=== PATIENT | male | born 1935 | race Caucasian/White ===

== ENCOUNTER 2018-04-27 23:05 | Inpatient (IN) | payer MEDICARE, MEDICAID ==
--- NOTE | 2018-04-27 23:42 | C.PDOC ---
History Of Present Illness 82 year old male with a Hx of HTN and dementia brought in by family after having a syncopal episode [employer]. As per family, patient went to use the bathroom, while in the bathroom they heard a loud noise and then found him on the floor. Patient states he was eating soup today and began to feel dizzy. Family notes patient often gets dizzy and has syncopized before in the past but always refused to come to hospital. Patient denies any pain, dizziness, or discomfort at this time. Chief Complaint (Nursing): Syncope History Per: Patient, Family History/Exam Limitations: no limitations Onset/Duration Of Symptoms: Hrs Current Symptoms Are (Timing): Still Present Number Of Syncopal Episodes: 1 Activity At Onset Of Symptoms: Other (Going to bathroom) Associated Symptoms Preceding Syncopal Episode: Other (Dizziness) Seizure Or Post-ictal Symptoms: None Fall Associated With With Symptoms: Yes Recent travel outside of the [place]: No Past Medical History Reviewed: Historical Data, Nursing Documentation, Vital Signs Vital Signs: Last Vital Signs Temp 98 F 04/27/18 23:14 Pulse 79 04/27/18 23:14 Resp 13 04/27/18 23:14 BP 140/84 04/27/18 23:14 Pulse Ox 100 04/27/18 23:14 - Medical History PMH: HTN Denies: Chronic Kidney Disease Family History: States: Unknown Family Hx - Social History Hx Tobacco Use: No Hx Alcohol Use: Yes Hx Substance Use: No - Immunization History Hx Tetanus Toxoid Vaccination: No Hx Influenza Vaccination: No Hx Pneumococcal Vaccination: No Review Of Systems Except As Marked, All Systems Reviewed And Found Negative. Neurological: Positive for: Other (Syncope) Physical Exam - Physical Exam Appears: Non-toxic Skin: Normal Color, Warm, Dry Head: Atraumatic, Normacephalic Eye(s): bilateral: Normal Inspection, PERRL, EOMI Nose: Normal Oral Mucosa: Moist Neck: Normal, No Midline Cervical Tenderness, No Paracervical Tenderness, Supple Chest: Symmetrical, No Tenderness Cardiovascular: Rhythm Regular Respiratory: Normal Breath Sounds, No Rales, No Rhonchi, No Wheezing Gastrointestinal/Abdominal: Soft, No Tenderness Back: No Vertebral Tenderness, No Paraspinal Tenderness Extremity: Normal ROM (x4) Neurological/Psych: Oriented x3, Normal Speech, Normal Motor, Normal Sensation, No Dysarthria Extremity: Right: No Drift, Left: No Drift, Upper: No Drift, Lower: No Drift ED Course And Treatment - Laboratory Results Result Diagrams: 04/28/18 06:34 04/28/18 06:34 ECG: Interpreted By Me, Viewed By Me ECG Rhythm: Sinus Rhythm ECG Interpretation: Normal Interpretation Of ECG: No STEMI Rate From EC O2 Sat by Pulse Oximetry: 100 (Room air) Pulse Ox Interpretation: Normal Medical Decision Making Medical Decision Makin yr old male w/ hx of dizziness, htn, dementia p/w syncopal event. Head trauma w/ out being on blood thinners. EKG largely unremarkable. Will likely require obs given syncopal episode and fall. Neck is clear by nexus labs largely unremarkable. CTH unremarkable. accepted by Dr. velasquez for syncope w/u. Pt in NAD and agreeable to plan. Disposition - Disposition Disposition Time: 01:02 Condition: GOOD - Clinical Impression Clinical Impression: Syncope - Scribe Statement The provider has reviewed the documentation as recorded by the Scribraeann Monique All medical record entries made by the Scribe were at my direction and personally dictated by me. I have reviewed the chart and agree that the record accurately reflects my personal performance of the history, physical exam, medical decision making, and the department course for this patient. I have also personally directed, reviewed, and agree with the discharge instructions and disposition.
[2018-04-28 00:26] LABS: BASO # 0.1 K/uL (0.0-0.2); EOS # 0.3 K/uL (0.0-0.7); EOS % 4.1 % (0.0-4.0); HEMOGLOBIN 12.3 g/dL (12.0-18.0); LYMPH # 2.6 K/uL (1.0-4.3); LYMPH % 31.5 % (20.0-40.0); MEAN CELL VOLUME 95.7 fL (80.0-94.0); MEAN CORPUSCULAR HEMOGLOBIN 31.7 pg (27.0-31.0); MEAN CORPUSCULAR HGB CONC 33.1 g/dL (33.0-37.0); MEAN PLATELET VOLUME 8.4 fL (7.2-11.7); MONO % 11.8 % (0.0-10.0); NEUT # 4.3 K/uL (1.8-7.0); NEUT % 51.6 % (50.0-75.0); NRBC % 0.1 % (0.0-2.0); RBC 3.89 Mil/uL (4.40-5.90); RED CELL DISTRIBUTION WIDTH 14.3 % (11.5-14.5); WHITE BLOOD COUNT 8.2 K/uL (4.8-10.8)
[2018-04-28 00:33] LABS: BLOOD UREA NITROGEN 13 mg/dL (9-20); CALCIUM 9.8 mg/dl (8.6-10.4); GFR NON-AFRICAN AMERICAN > 60
[2018-04-28 00:37] LABS: ALB/GLOB RATIO 1.6 (1.0-2.1); ALBUMIN 4.3 g/dL (3.5-5.0); ALT/SGPT 16 U/L (21-72); AST/SGOT 29 U/L (17-59)
[2018-04-28] MEDS: Sodium Chloride 0.9% 1,000 ML IV SCH ×2 (01:15→15:45)
[2018-04-28] MEDS ORDERED: MECLIZINE HYDROCHLORIDE PO PRN (06:08)
[2018-04-28 06:37] LABS: BASO # 0.1 K/uL (0.0-0.2); BASO % 0.9 % (0.0-2.0); EOS # 0.2 K/uL (0.0-0.7); EOS % 2.4 % (0.0-4.0); HEMOGLOBIN 11.6 g/dL (12.0-18.0); LYMPH # 3.4 K/uL (1.0-4.3); MEAN CELL VOLUME 94.5 fL (80.0-94.0); MEAN CORPUSCULAR HEMOGLOBIN 31.3 pg (27.0-31.0); MEAN CORPUSCULAR HGB CONC 33.2 g/dL (33.0-37.0); MEAN PLATELET VOLUME 7.7 fL (7.2-11.7); MONO # 0.8 K/uL (0.0-0.8); MONO % 8.8 % (0.0-10.0); NEUT # 5.1 K/uL (1.8-7.0); NEUT % 52.9 % (50.0-75.0); RBC 3.72 Mil/uL (4.40-5.90); RED CELL DISTRIBUTION WIDTH 14.2 % (11.5-14.5); WHITE BLOOD COUNT 9.6 K/uL (4.8-10.8)
[2018-04-28 06:52] LABS: ALB/GLOB RATIO 1.6 (1.0-2.1); ALBUMIN 3.7 g/dL (3.5-5.0); ALT/SGPT 20 U/L (21-72); AST/SGOT 19 U/L (17-59); BLOOD UREA NITROGEN 12 mg/dL (9-20); CALCIUM 9.3 mg/dl (8.6-10.4); GFR NON-AFRICAN AMERICAN > 60
--- NOTE | 2018-04-28 07:50 | CT ---
Date of service: 04/28/2018 PROCEDURE: CT HEAD WITHOUT CONTRAST. HISTORY: fall, syncope COMPARISON: 07/25/2013 TECHNIQUE: Axial computed tomography images were obtained through the head/brain without intravenous contrast. Radiation dose: Total exam DLP = 1044.08 mGy-cm. This CT exam was performed using one or more of the following dose reduction techniques: Automated exposure control, adjustment of the mA and/or kV according to patient size, and/or use of iterative reconstruction technique. FINDINGS: HEMORRHAGE: No intracranial hemorrhage. BRAIN: No mass effect or edema. Scattered focal lucencies in the subcortical and periventricular white matter suggestive for chronic microvascular ischemic change. Diffuse generalized parenchymal atrophy. Bifrontal extra-axial prominence. Cerebellar atrophy. VENTRICLES: Unremarkable. No hydrocephalus. CALVARIUM: Unremarkable. PARANASAL SINUSES: Unremarkable as visualized. No significant inflammatory changes. MASTOID AIR CELLS: Unremarkable as visualized. No inflammatory changes. OTHER FINDINGS: Intracranial arterial calcifications. Calcification along the falx and tentorium. IMPRESSION: No acute intracranial abnormality. Atrophy. Chronic microvascular ischemic change. If symptoms persists, consider correlation with MRI. A preliminary report was generated at 2:08 a.m. on 04/28/[address] Lion Preston from [facility].
--- NOTE | 2018-04-28 08:30 | RAD ---
Chest x-ray single frontal view HISTORY: Fall. Syncope. COMPARISON: None available. Findings: Mild venous congestion. Right paratracheal prominence may represent prominent vasculature. Heart size within normal limits. Degenerative changes in the spine and shoulders. Impression: Mild venous congestion. Right paratracheal prominence may represent prominent vasculature. Heart size within normal limits. Degenerative changes in the spine and shoulders.
[2018-04-28] MEDS ORDERED: Home Med 1 UNIT (Dexlansoprazole [Dexilant] 60 MG) PO SCH (10:00)
--- NOTE | 2018-04-28 10:33 | CP.PCM.CON ---
History of Present Illness - History of Present Illness History of Present Illness: I was asked to see patient by Dr Smallwood Patient was seen 04/28/18 0588 Patient is a 82 year old male with HTN who presents with syncope. Patient was walking from the bathroom when the family next heard a fall. He denies chest pain or palpitations. According to his daughter he has had multiple falls and syncopal events. Review of Systems - Constitutional Constitutional: absent: As Per HPI, Anorexia, Chills, Daytime Sleepiness, Excessive Sweating, Fatigue, Fever, Frequent Falls, Headache, Increased Appetite, Lethargy, Malaise, Night Sweats, Snoring, Sleep Apnea, Weight Gain, Weight Loss, Weakness, Other - EENT Eyes: absent: As Per HPI, Blind Spots, Blurred Vision, Change in Vision, Decreased Night Vision, Diplopia, Discharge, Dry Eye, Exophthalmos, Floaters, Irritation, Itchy Eyes, Loss of Peripheral Vision, Pain, Photophobia, Requires Corrective Lenses, Sees Flashes, Spots in Vision, Tunnel Vision, Other Visual Disturbances, Loss of Vision, Other Ears: absent: As Per HPI, Decreased Hearing, Ear Discharge, Ear Pain, Tinnitus, Abnormal Hearing, Disequilibrium, Dizziness, Other Nose/Mouth/Throat: absent: As Per HPI, Epistaxis, Nasal Congestion, Nasal Discharge, Nasal Obstruction, Nasal Trauma, Nose Pain, Post Nasal Drip, Sinus Pain, Sinus Pressure, Bleeding Gums, Change in Voice, Dental Pain, Dry Mouth, Dysphagia, Halitosis, Hoarsness, Lip Swelling, Mouth Lesions, Mouth Pain, Odynophagia, Sore Throat, Throat Swelling, Tongue Swelling, Facial Pain, Neck Pain, Neck Mass, Other - Cardiovascular Cardiovascular: Syncope - Respiratory Respiratory: absent: As Per HPI, Cough, Dyspnea, Hemoptysis, Dyspnea on Exertion, Wheezing, Snoring, Stridor, Pain on Inspiration, Chest Congestion, Excessive Mucous Production, Change in Mucous Color, Pain with Coughing, Other - Gastrointestinal Gastrointestinal: absent: As Per HPI, Abdominal Pain, Belching, Bloating, Change in Bowel Habits, Change in Stool Character, Coffee Ground Emesis, Constipation, Cramping, Diarrhea, Dyspepsia, Dysphagia, Early Satiety, Excessive Flatus, Fecal Incontinence, Heartburn, Hematemesis, Hematochezia, Loose Stools, Melena, Nausea, Odynophagia, Temesmus, Vomiting, Other - Genitourinary Genitourinary: absent: As Per HPI, Change in Urinary Stream, Difficulty Urinating, Dysuria, Flank Pain, Hematuria, Pyuria, Nocturia, Urinary Inc ontinence, Urinary Frequency, Urinary Hesitance, Urinary Urgency, Voiding Freq/Small Amts, Freq UTI, Hx Renal/Bladder Calculi, Hx /Renal Surgery, Bladder Distension, Other - Musculoskeletal Musculoskeletal: absent: As Per HPI, Abnormal Gait, Arthralgias, Atrophy, Back Pain, Deformity, Joint Swelling, Limited Range of Motion, Loss of Height, Muscle Cramps, Muscle Weakness, Myalgias, Neck Pain, Numbness, Radiating Pain into Limb, Stiffness, Tingling, Other - Integumentary Integumentary: absent: As Per HPI, Acne, Alopecia, Bleeding Lesions, Change in Hair, Change in Nails, Change in Pigmentation, Changing Lesions, Dry Skin, Erythema, Furuncle, Hirsutism, Lesions, New Lesions, Non-Healing Lesions, Photosensitivity, Pruritus, Rash, Skin Pain, Skin Ulcer, Sores, Striae, Swelling, Unusual Bruising, Wounds, Jaundice, Other - Neurological Neurological: absent: As Per HPI, Abnormal Gait, Abnormal Hearing, Abnormal Movements, Abnormal Speech, Behavioral Changes, Burning Sensations, Confusion, Convulsions, Disequilibrium, Dizziness, Numbness, Focal Weakness, Frequent Falls, Headaches, Lack of Coordination, Loss of Vision, Memory Loss, Paresthesias, Radicular Pain, Restless Legs, Sensory Deficit, Syncope, Tingling, Tremor, Vertigo, Weakness, Other Visual Disturbances, Other - Psychiatric Psychiatric: absent: As Per HPI, Abnormal Sleep Pattern, Anhedonia, Anxiety, Auditory Hallucinations, Behavioral Changes, Change in Appetite, Change in Libido, Confusion, Depression, Difficulty Concentrating, Hallucinations, Homicidal Ideation, Hopelessness, Irritability, Memory Loss, Mood Swings, Panic Attacks, Paranoia, Suicidal Ideation, Visual Hallucinations, Tactile Hallucinations, Other - Endocrine Endocrine: absent: As Per HPI, Change in Body Appearance, Change in Libido, Cold Intolorance, Deepening of Voice, Excessive Sweating, Fatigue, Flushing, Heat Intolorance, Increase in Ring/Shoe/Hat Size, Palpitations, Polydipsia, Polyphagia, Polyuria, Other - Hematologic/Lymphatic Hematologic: absent: As Per HPI, Easy Bleeding, Easy Bruising, Lymphadenopathy, Other Past Patient History - Past Social History Smoking Status: Never Smoked - CARDIAC Hx Hypertension: Yes - PULMONARY Hx Respiratory Disorders: No - NEUROLOGICAL Hx Neurological Disorder: Yes Hx Dizziness: Yes - HEENT Hx HEENT Problems: No - RENAL Hx Chronic Kidney Disease: No - ENDOCRINE/METABOLIC Hx Endocrine Disorders: No - HEMATOLOGICAL/ONCOLOGICAL Hx Blood Disorders: No - INTEGUMENTARY Hx Dermatological Problems: No - MUSCULOSKELETAL/RHEUMATOLOGICAL Hx Musculoskeletal Disorders: No - GASTROINTESTINAL Hx Gastrointestinal Disorders: Yes Hx Gastroesophageal Reflux: Yes - GENITOURINARY/GYNECOLOGICAL Hx Genitourinary Disorders: No - PSYCHIATRIC Hx Substance Use: No - SURGICAL HISTORY Hx Surgeries: No - ANESTHESIA Hx Anesthesia: No Meds Allergies/Adverse Reactions: Allergies Allergy/AdvReac Type Severity Reaction Status Date / Time No Known Allergies Allergy Verified 04/27/18 23:18 - Medications Medications: Current Medications Amlodipine Besylate (Norvasc) 5 mg PO DAILY [facility] Last Admin: 04/28/18 09:54 Dose: 5 mg Enalapril Maleate (Vasotec) 5 mg PO DAILY [facility] Last Admin: 04/28/18 09:54 Dose: 5 mg Sodium Chloride (Sodium Chloride 0.9%) 1,000 mls @ 75 mls/hr IV .[id number] [facility] Last Admin: 04/28/18 01:15 Dose: 75 mls/hr Meclizine HCl (Antivert) 25 mg PO BID PRN PRN Reason: Dizziness Pantoprazole Sodium (Protonix Ec Tab) 40 mg PO DAILY [facility] Physical Exam - Constitutional Appears: Non-toxic - Head Exam Head Exam: NORMAL INSPECTION - Eye Exam Eye Exam: Normal appearance - ENT Exam ENT Exam: Mucous Membranes Moist - Neck Exam Neck exam: Positive for: Full Rom - Respiratory Exam Respiratory Exam: NORMAL BREATHING PATTERN - Cardiovascular Exam Cardiovascular Exam: REGULAR RHYTHM, RRR, Systolic Murmur Additional comments: 3/6 crescendo systolic murmur LUSB to the carotids. diminshed second heart sound - GI/Abdominal Exam GI & Abdominal Exam: Normal Bowel Sounds - Rectal Exam Rectal Exam: Deferred - Extremities Exam Extremities exam: Negative for: pedal edema - Back Exam Back exam: NORMAL INSPECTION - Neurological Exam Neurological exam: Alert, Oriented x3 - Psychiatric Exam Psychiatric exam: Normal Affect - Skin Skin Exam: Normal Color Results - Vital Signs Recent Vital Signs: Last Vital Signs Temp 97.5 F L 04/28/18 02:29 Pulse 87 04/28/18 09:47 Resp 18 04/28/18 09:47 BP 124/64 04/28/18 09:54 Pulse Ox 99 04/28/18 09:47 - Labs Result Diagrams: 04/28/18 06:34 04/28/18 06:34 Labs: Laboratory Results - last 24 hr 04/27/18 04/28/18 04/28/18 23:29 00:16 00:16 WBC 8.2 RBC 3.89 L Hgb 12.3 Hct 37.2 MCV 95.7 H MCH 31.7 H MCHC 33.1 RDW 14.3 Plt Count 265 MPV 8.4 Neut % (Auto) 51.6 Lymph % (Auto) 31.5 [place] % (Auto) 11.8 H Eos % (Auto) 4.1 H Baso % (Auto) 1.0 Neut # (Auto) 4.3 Lymph # (Auto) 2.6 [place] # (Auto) 1.0 H Eos # (Auto) 0.3 Baso # (Auto) 0.1 Sodium 137 Potassium 5.5 H Chloride 100 Carbon Dioxide 26 Anion Gap 16 BUN 13 Creatinine 0.7 L Est GFR ( Amer) > 60 Est GFR (Non-Af Amer) > 60 POC Glucose (mg/dL) 115 H Random Glucose 103 Calcium 9.8 Total Bilirubin 0.7 AST 29 ALT 16 L D Alkaline Phosphatase 56 Troponin I < 0.0120 Total Protein 7.1 Albumin 4.3 Globulin 2.8 Albumin/Globulin Ratio 1.6 TSH 3rd Generation 4.06 04/28/18 04/28/18 06:34 06:34 WBC 9.6 RBC 3.72 L Hgb 11.6 L Hct 35.1 MCV 94.5 H MCH 31.3 H MCHC 33.2 RDW 14.2 Plt Count 257 MPV 7.7 Neut % (Auto) 52.9 Lymph % (Auto) 35.0 [place] % (Auto) 8.8 Eos % (Auto) 2.4 Baso % (Auto) 0.9 Neut # (Auto) 5.1 Lymph # (Auto) 3.4 [place] # (Auto) 0.8 Eos # (Auto) 0.2 Baso # (Auto) 0.1 Sodium 135 Potassium 4.2 Chloride 102 Carbon Dioxide 25 Anion Gap 12 BUN 12 Creatinine 0.7 L Est GFR ( Amer) > 60 Est GFR (Non-Af Amer) > 60 POC Glucose (mg/dL) Random Glucose 112 H Calcium 9.3 Total Bilirubin 0.4 AST 19 ALT 20 L D Alkaline Phosphatase 62 Troponin I Total Protein 6.1 L Albumin 3.7 Globulin 2.4 Albumin/Globulin Ratio 1.6 TSH 3rd Generation - EKG Data EKG Interpreted by: Myself EKG shows normal: Sinus rhythm Assessment & Plan (1) Aortic stenosis Assessment and Plan: The physical exam is consistent with aortic stenosis. This is likely the cause of the patient's symptoms. will check echocardiogram Status: Acute (2) Syncope Assessment and Plan: likely due to aortic stenosis Status: Acute
--- NOTE | 2018-04-28 14:48 | CP.PCM.CON ---
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 EEG/MRI/BLOOD WORK UP /CAROTID FALL PERECAUTION PT Past Patient History - Past Social History Smoking Status: Never Smoked - CARDIAC Hx Hypertension: Yes - PULMONARY Hx Respiratory Disorders: No - NEUROLOGICAL Hx Neurological Disorder: Yes Hx Dizziness: Yes - HEENT Hx HEENT Problems: No - RENAL Hx Chronic Kidney Disease: No - ENDOCRINE/METABOLIC Hx Endocrine Disorders: No - HEMATOLOGICAL/ONCOLOGICAL Hx Blood Disorders: No - INTEGUMENTARY Hx Dermatological Problems: No - MUSCULOSKELETAL/RHEUMATOLOGICAL Hx Musculoskeletal Disorders: No - GASTROINTESTINAL Hx Gastrointestinal Disorders: Yes Hx Gastroesophageal Reflux: Yes - GENITOURINARY/GYNECOLOGICAL Hx Genitourinary Disorders: No - PSYCHIATRIC Hx Substance Use: No - SURGICAL HISTORY Hx Surgeries: No - ANESTHESIA Hx Anesthesia: No Meds Allergies/Adverse Reactions: Allergies Allergy/AdvReac Type Severity Reaction Status Date / Time No Known Allergies Allergy Verified 04/27/18 23:18 - Medications Medications: Current Medications Amlodipine Besylate (Norvasc) 5 mg PO DAILY [facility] Last Admin: 04/28/18 09:54 Dose: 5 mg Enalapril Maleate (Vasotec) 5 mg PO DAILY [facility] Last Admin: 04/28/18 09:54 Dose: 5 mg Sodium Chloride (Sodium Chloride 0.9%) 1,000 mls @ 75 mls/hr IV .[id number] [facility] Last Admin: 04/28/18 01:15 Dose: 75 mls/hr Meclizine HCl (Antivert) 25 mg PO BID PRN PRN Reason: Dizziness Pantoprazole Sodium (Protonix Ec Tab) 40 mg PO DAILY [facility] Results - Vital Signs Recent Vital Signs: Last Vital Signs Temp 97.5 F L 04/28/18 02:29 Pulse 84 04/28/18 11:38 Resp 22 04/28/18 11:38 BP 116/72 04/28/18 11:38 Pulse Ox 99 04/28/18 11:38 - Labs Result Diagrams: 04/28/18 06:34 04/28/18 06:34 Labs: Laboratory Results - last 24 hr 04/27/18 04/28/18 04/28/18 23:29 00:16 00:16 WBC 8.2 RBC 3.89 L Hgb 12.3 Hct 37.2 MCV 95.7 H MCH 31.7 H MCHC 33.1 RDW 14.3 Plt Count 265 MPV 8.4 Neut % (Auto) 51.6 Lymph % (Auto) 31.5 [place] % (Auto) 11.8 H Eos % (Auto) 4.1 H Baso % (Auto) 1.0 Neut # (Auto) 4.3 Lymph # (Auto) 2.6 [place] # (Auto) 1.0 H Eos # (Auto) 0.3 Baso # (Auto) 0.1 Sodium 137 Potassium 5.5 H Chloride 100 Carbon Dioxide 26 Anion Gap 16 BUN 13 Creatinine 0.7 L Est GFR ( Amer) > 60 Est GFR (Non-Af Amer) > 60 POC Glucose (mg/dL) 115 H Random Glucose 103 Calcium 9.8 Total Bilirubin 0.7 AST 29 ALT 16 L D Alkaline Phosphatase 56 Troponin I < 0.0120 Total Protein 7.1 Albumin 4.3 Globulin 2.8 Albumin/Globulin Ratio 1.6 TSH 3rd Generation 4.06 04/28/18 04/28/18 06:34 06:34 WBC 9.6 RBC 3.72 L Hgb 11.6 L Hct 35.1 MCV 94.5 H MCH 31.3 H MCHC 33.2 RDW 14.2 Plt Count 257 MPV 7.7 Neut % (Auto) 52.9 Lymph % (Auto) 35.0 [place] % (Auto) 8.8 Eos % (Auto) 2.4 Baso % (Auto) 0.9 Neut # (Auto) 5.1 Lymph # (Auto) 3.4 [place] # (Auto) 0.8 Eos # (Auto) 0.2 Baso # (Auto) 0.1 Sodium 135 Potassium 4.2 Chloride 102 Carbon Dioxide 25 Anion Gap 12 BUN 12 Creatinine 0.7 L Est GFR ( Amer) > 60 Est GFR (Non-Af Amer) > 60 POC Glucose (mg/dL) Random Glucose 112 H Calcium 9.3 Total Bilirubin 0.4 AST 19 ALT 20 L D Alkaline Phosphatase 62 Troponin I Total Protein 6.1 L Albumin 3.7 Globulin 2.4 Albumin/Globulin Ratio 1.6 TSH 3rd Generation
[2018-04-28 15:01] LABS: PROLACTIN 7.3 ng/mL (3.7-17.9)
[2018-04-28 15:04] LABS: FREE T4 0.95 ng/dL (0.78-2.19)
[2018-04-28] MEDS ORDERED: Sodium Chloride 0.9% 1,000 ML ONE (15:42)
--- NOTE | 2018-04-28 18:34 | CP.PCM.HP ---
History of Present Illness - History of Present Illness History of Present Illness: 82 years old male with PMH significant for HTN who presents to ER after he fell at home due to a Syncopal episode. Patient denies headache, chest pain, shortness of breath, dizziness, abdominal pain or urinary symptoms. Present on Admission - Present on Admission Any Indicators Present on Admission: No Review of Systems - Cardiovascular Cardiovascular: Syncope - Neurological Neurological: Confusion Past Patient History - Past Social History Smoking Status: Never Smoked - CARDIAC Hx Hypertension: Yes - PULMONARY Hx Respiratory Disorders: No - NEUROLOGICAL Hx Neurological Disorder: Yes Hx Dizziness: Yes - HEENT Hx HEENT Problems: No - RENAL Hx Chronic Kidney Disease: No - ENDOCRINE/METABOLIC Hx Endocrine Disorders: No - HEMATOLOGICAL/ONCOLOGICAL Hx Blood Disorders: No - INTEGUMENTARY Hx Dermatological Problems: No - MUSCULOSKELETAL/RHEUMATOLOGICAL Hx Musculoskeletal Disorders: No - GASTROINTESTINAL Hx Gastrointestinal Disorders: Yes Hx Gastroesophageal Reflux: Yes - GENITOURINARY/GYNECOLOGICAL Hx Genitourinary Disorders: No - PSYCHIATRIC Hx Substance Use: No - SURGICAL HISTORY Hx Surgeries: No - ANESTHESIA Hx Anesthesia: No Meds Allergies/Adverse Reactions: Allergies Allergy/AdvReac Type Severity Reaction Status Date / Time No Known Allergies Allergy Verified 04/27/18 23:18 Physical Exam - Constitutional Appears: Non-toxic, No Acute Distress, Confused - Head Exam Head Exam: ATRAUMATIC, NORMAL INSPECTION, NORMOCEPHALIC - Eye Exam Eye Exam: EOMI, Normal appearance, PERRL - ENT Exam ENT Exam: Mucous Membranes Moist, Normal Exam - Neck Exam Neck exam: Positive for: Normal Inspection - Respiratory Exam Respiratory Exam: Clear to Auscultation Bilateral, NORMAL BREATHING PATTERN - Cardiovascular Exam Cardiovascular Exam: REGULAR RHYTHM, +S1, +S2, Systolic Murmur - GI/Abdominal Exam GI & Abdominal Exam: Normal Bowel Sounds, Soft - Extremities Exam Extremities exam: Positive for: full ROM, normal inspection - Back Exam Back exam: NORMAL INSPECTION - Neurological Exam Neurological exam: Alert, CN II-XII Intact - Psychiatric Exam Psychiatric exam: Flat Affect, Normal Mood Results - Vital Signs Recent Vital Signs: Last Vital Signs Temp 99.2 F 04/28/18 18:05 Pulse 85 04/28/18 18:05 Resp 18 04/28/18 18:05 BP 117/57 L 04/28/18 18:05 Pulse Ox 99 04/28/18 18:05 - Labs Result Diagrams: 04/28/18 06:34 04/28/18 06:34 Labs: Laboratory Results - last 24 hr 04/27/18 04/28/18 04/28/18 23:29 00:16 00:16 WBC 8.2 RBC 3.89 L Hgb 12.3 Hct 37.2 MCV 95.7 H MCH 31.7 H MCHC 33.1 RDW 14.3 Plt Count 265 MPV 8.4 Neut % (Auto) 51.6 Lymph % (Auto) 31.5 [place] % (Auto) 11.8 H Eos % (Auto) 4.1 H Baso % (Auto) 1.0 Neut # (Auto) 4.3 Lymph # (Auto) 2.6 [place] # (Auto) 1.0 H Eos # (Auto) 0.3 Baso # (Auto) 0.1 Sodium 137 Potassium 5.5 H Chloride 100 Carbon Dioxide 26 Anion Gap 16 BUN 13 Creatinine 0.7 L Est GFR ( Amer) > 60 Est GFR (Non-Af Amer) > 60 POC Glucose (mg/dL) 115 H Random Glucose 103 Hemoglobin A1c Calcium 9.8 Total Bilirubin 0.7 AST 29 ALT 16 L D Alkaline Phosphatase 56 Troponin I < 0.0120 Total Protein 7.1 Albumin 4.3 Globulin 2.8 Albumin/Globulin Ratio 1.6 Vitamin B12 Free T4 TSH 3rd Generation 4.06 Prolactin 04/28/18 04/28/18 04/28/18 06:34 06:34 14:21 WBC 9.6 RBC 3.72 L Hgb 11.6 L Hct 35.1 MCV 94.5 H MCH 31.3 H MCHC 33.2 RDW 14.2 Plt Count 257 MPV 7.7 Neut % (Auto) 52.9 Lymph % (Auto) 35.0 [place] % (Auto) 8.8 Eos % (Auto) 2.4 Baso % (Auto) 0.9 Neut # (Auto) 5.1 Lymph # (Auto) 3.4 [place] # (Auto) 0.8 Eos # (Auto) 0.2 Baso # (Auto) 0.1 Sodium 135 Potassium 4.2 Chloride 102 Carbon Dioxide 25 Anion Gap 12 BUN 12 Creatinine 0.7 L Est GFR ( Amer) > 60 Est GFR (Non-Af Amer) > 60 POC Glucose (mg/dL) Random Glucose 112 H Hemoglobin A1c 5.8 Calcium 9.3 Total Bilirubin 0.4 AST 19 ALT 20 L D Alkaline Phosphatase 62 Troponin I Total Protein 6.1 L Albumin 3.7 Globulin 2.4 Albumin/Globulin Ratio 1.6 Vitamin B12 Free T4 TSH 3rd Generation Prolactin 04/28/18 04/28/18 14:21 14:21 WBC RBC Hgb Hct MCV MCH MCHC RDW Plt Count MPV Neut % (Auto) Lymph % (Auto) [place] % (Auto) Eos % (Auto) Baso % (Auto) Neut # (Auto) Lymph # (Auto) [place] # (Auto) Eos # (Auto) Baso # (Auto) Sodium Potassium Chloride Carbon Dioxide Anion Gap BUN Creatinine Est GFR ( Amer) Est GFR (Non-Af Amer) POC Glucose (mg/dL) Random Glucose Hemoglobin A1c Calcium Total Bilirubin AST ALT Alkaline Phosphatase Troponin I Total Protein Albumin Globulin Albumin/Globulin Ratio Vitamin B12 < 159 L Free T4 0.95 TSH 3rd Generation 1.08 Prolactin 7.3 Assessment & Plan (1) Syncope Assessment and Plan: Neurology evaluation. Cardiology evaluation. CBC Diff. CMP. UA. Status: Acute (2) Aortic stenosis Assessment and Plan: Cardiology evaluation. 2D Echo. Status: Acute (3) Hypertension Assessment and Plan: Continue same treatment. Status: Acute
[2018-04-28 19:18] LABS: BLOOD UREA NITROGEN 10 mg/dL (9-20); CALCIUM 9.1 mg/dl (8.6-10.4); GFR NON-AFRICAN AMERICAN > 60
[2018-04-29 01:30] VITALS: RESP 20
--- NOTE | 2018-04-29 02:13 | CON ---
DATE: 04/28/2018 DATE OF ADMISSION: 04/27/2018 ATTENDING PHYSICIAN: Judah Smallwood MD LOCATION: Emergency room, bed 15. REASON FOR CONSULTATION: Syncopal attack. CHIEF COMPLAINT: The patient was brought into [facility] following the fall in the bathroom. The patient had a syncopal attack in the bathroom. From neurological point of view, I was called in to evaluate him for further management. HISTORY OF PRESENT ILLNESS: Mr. Daniel Rizo is an 82-year-old male, lives with his . Around 10 o'clock, he went to the bathroom for urination. Next thing, the heard a big sound. At that time they got into the bathroom, he was on the floor with loss of consciousness. He fell face down and hurt his chin and head. No witnessed tonic-clonic activities at the scene. No bowel and bladder incontinence at the scene. No history of bitten tongue. No similar episodes happened in the past. PAST MEDICAL HISTORY: Hypertension. ALLERGIES: NO KNOWN ALLERGIES. PERSONAL HISTORY: He drinks three to four cans of beer every day. No history of smoking. REVIEW OF SYSTEMS: Twelve-point system being reviewed from neuro, syncopal attack. MEDICATIONS: Antivert, Norvasc, Protonix, IV fluids and Vasotec. PHYSICAL EXAMINATION: NECK: Supple. No carotid bruits. HEART: Heart sounds suggest ejection systolic murmur with a grade 3. EXTREMITIES: Left leg externally rotated. NEUROLOGIC EXAMINATION: The patient is examined in the presence of his , daughter, and granddaughter. He knows he is in the hospital. His speech is fluent as per the family; however, he seems to be dysarthric for me. He follows one to two-step command. Significant right and left confusion. Cranial nerve examination: Visual field intact. Respond to visual threat. Pupils reactive to light. Extraocular movement decreased in all direction. No facial sensory deficit, facial asymmetry, mild asymmetry noted on the left side. Good gag. Motor examination: Mild drift noted on his left side. Left leg also seems to be weak to compare with the right side. Deep tendon reflexes in biceps, brachialis, triceps are absent, both knees are absent, both ankles are absent. Plantars are upgoing on both sides. Sensory examination: Significant distal sensory motor neuropathy. Position sense is intact. Coordination: Fabjqe-[id number]-djjbla test dysmetria on the left side. Gait is deferred at this time. Examination showed raccoon eye with ecchymosis on his lower orbit on his left side and chin region. CONCLUSION: 1. As per my neurological examination and reviewing his history, the patient was presenting here with postconcussion syndrome with mild left hemiparesis. The patient was presenting with raccoon eye probably basilar skull fracture. 2. Left hemiparesis which may be new versus old right subcortical dysfunction. However, Nic's paresis should be ruled out. 3. 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 WORKUP: CT of the head reported as negative for bleed. Blood workup: WBC 9.6, hemoglobin 11.6, hematocrit 35.1, platelet 257. Sodium 135, potassium 4.2, chloride 102, bicarbonate 25, BUN 12, creatinine 0.7, GFR more than 60, random glucose 112. AST 19, ALT 20. RECOMMENDATIONS: 1. MRI of the brain to rule out any ischemic process. 2. Carotid Doppler to assess the stenosis. 3. Electroencephalogram to rule out any paroxysmal activities. 4. The patient should be on aspirin for stroke prophylaxis. 5. Abstinence from alcohol. 6. Physical therapy. The patient's condition has been discussed with the family members. The patient will be followed while he is in the hospital. Uzair Anguiano MD
[2018-04-29] MEDS: Pantoprazole 40 mg EC Tab PO SCH (10:31)
--- NOTE | 2018-04-29 10:51 | MRI ---
Date of service: 04/29/2018 PROCEDURE: MRI BRAIN WITHOUT CONTRAST HISTORY: r/o mass COMPARISON: None available. TECHNIQUE: Multiplanar, multisequence MR images of the brain were obtained without intravenous contrast enhancement. FINDINGS: HEMORRHAGE: None DWI: No evidence of an acute or early subacute infarction. BRAIN PARENCHYMA: The rees-white matter differentiation is well preserved. There is no mass effect or definitive edema pattern appreciated including the cortex. There is proportional expansion of the ventriculosulcal and cisternal spaces however in a pattern most compatible with diffuse cerebral atrophy, once again. No suspicious extra-axial fluid collection is identified in the midline brain anatomy appears grossly nonfocal as imaged. VENTRICLES: Unremarkable. No hydrocephalus. CRANIUM: Unremarkable. ORBITS: Grossly unremarkable. PARANASAL SINUSES/MASTOIDS: Clear VASCULAR SYSTEM: Skull base flow voids intact. OTHER FINDINGS: None. IMPRESSION: Age-related neuro degenerative changes remain age appropriate and are reiterated without definite acute intracranial MR findings as discussed above. Continued clinical correlation advised. Cross-sectional imaging follow-up available. No overt MR sign of intracranial mass however MRI with contrast can be utilized for more definitive evaluation.
[2018-04-29] MEDS: Sodium Chloride 0.9% 1,000 ML IV SCH (15:45)
--- NOTE | 2018-04-29 18:15 | CP.PCM.CON ---
History of Present Illness - History of Present Illness History of Present Illness: patient has no current chest pain or dyspnea. Review of Systems - Constitutional Constitutional: absent: As Per HPI, Anorexia, Chills, Daytime Sleepiness, Excessive Sweating, Fatigue, Fever, Frequent Falls, Headache, Increased Appetite, Lethargy, Malaise, Night Sweats, Snoring, Sleep Apnea, Weight Gain, Weight Loss, Weakness, Other - EENT Eyes: absent: As Per HPI, Blind Spots, Blurred Vision, Change in Vision, Decreased Night Vision, Diplopia, Discharge, Dry Eye, Exophthalmos, Floaters, Irritation, Itchy Eyes, Loss of Peripheral Vision, Pain, Photophobia, Requires Corrective Lenses, Sees Flashes, Spots in Vision, Tunnel Vision, Other Visual Disturbances, Loss of Vision, Other Ears: absent: As Per HPI, Decreased Hearing, Ear Discharge, Ear Pain, Tinnitus, Abnormal Hearing, Disequilibrium, Dizziness, Other Nose/Mouth/Throat: absent: As Per HPI, Epistaxis, Nasal Congestion, Nasal Discharge, Nasal Obstruction, Nasal Trauma, Nose Pain, Post Nasal Drip, Sinus Pain, Sinus Pressure, Bleeding Gums, Change in Voice, Dental Pain, Dry Mouth, Dysphagia, Halitosis, Hoarsness, Lip Swelling, Mouth Lesions, Mouth Pain, Odynophagia, Sore Throat, Throat Swelling, Tongue Swelling, Facial Pain, Neck Pain, Neck Mass, Other - Cardiovascular Cardiovascular: Dyspnea - Respiratory Respiratory: absent: As Per HPI, Cough, Dyspnea, Hemoptysis, Dyspnea on Exertion, Wheezing, Snoring, Stridor, Pain on Inspiration, Chest Congestion, Excessive Mucous Production, Change in Mucous Color, Pain with Coughing, Other - Gastrointestinal Gastrointestinal: absent: As Per HPI, Abdominal Pain, Belching, Bloating, Change in Bowel Habits, Change in Stool Character, Coffee Ground Emesis, Constipation, Cramping, Diarrhea, Dyspepsia, Dysphagia, Early Satiety, Excessive Flatus, Fecal Incontinence, Heartburn, Hematemesis, Hematochezia, Loose Stools, Melena, Nausea, Odynophagia, Temesmus, Vomiting, Other - Musculoskeletal Musculoskeletal: absent: As Per HPI, Abnormal Gait, Arthralgias, Atrophy, Back Pain, Deformity, Joint Swelling, Limited Range of Motion, Loss of Height, Muscle Cramps, Muscle Weakness, Myalgias, Neck Pain, Numbness, Radiating Pain into Limb, Stiffness, Tingling, Other - Integumentary Integumentary: absent: As Per HPI, Acne, Alopecia, Bleeding Lesions, Change in Hair, Change in Nails, Change in Pigmentation, Changing Lesions, Dry Skin, Erythema, Furuncle, Hirsutism, Lesions, New Lesions, Non-Healing Lesions, Photosensitivity, Pruritus, Rash, Skin Pain, Skin Ulcer, Sores, Striae, Swelling, Unusual Bruising, Wounds, Jaundice, Other - Neurological Neurological: absent: As Per HPI, Abnormal Gait, Abnormal Hearing, Abnormal Movements, Abnormal Speech, Behavioral Changes, Burning Sensations, Confusion, Convulsions, Disequilibrium, Dizziness, Numbness, Focal Weakness, Frequent Falls, Headaches, Lack of Coordination, Loss of Vision, Memory Loss, Paresthesias, Radicular Pain, Restless Legs, Sensory Deficit, Syncope, Tingling, Tremor, Vertigo, Weakness, Other Visual Disturbances, Other - Psychiatric Psychiatric: absent: As Per HPI, Abnormal Sleep Pattern, Anhedonia, Anxiety, Auditory Hallucinations, Behavioral Changes, Change in Appetite, Change in Libido, Confusion, Depression, Difficulty Concentrating, Hallucinations, Homicidal Ideation, Hopelessness, Irritability, Memory Loss, Mood Swings, Panic Attacks, Paranoia, Suicidal Ideation, Visual Hallucinations, Tactile Hallucinations, Other - Endocrine Endocrine: absent: As Per HPI, Change in Body Appearance, Change in Libido, Cold Intolorance, Deepening of Voice, Excessive Sweating, Fatigue, Flushing, Heat Intolorance, Increase in Ring/Shoe/Hat Size, Palpitations, Polydipsia, Polyphagia, Polyuria, Other - Hematologic/Lymphatic Hematologic: absent: As Per HPI, Easy Bleeding, Easy Bruising, Lymphadenopathy, Other Past Patient History - Past Social History Smoking Status: Never Smoked - CARDIAC Hx Hypertension: Yes - PULMONARY Hx Respiratory Disorders: No - NEUROLOGICAL Hx Neurological Disorder: Yes Hx Dizziness: Yes - HEENT Hx HEENT Problems: No - RENAL Hx Chronic Kidney Disease: No - ENDOCRINE/METABOLIC Hx Endocrine Disorders: No - HEMATOLOGICAL/ONCOLOGICAL Hx Blood Disorders: No - INTEGUMENTARY Hx Dermatological Problems: No - MUSCULOSKELETAL/RHEUMATOLOGICAL Hx Falls: Yes - GASTROINTESTINAL Hx Gastrointestinal Disorders: Yes Hx Gastroesophageal Reflux: Yes - GENITOURINARY/GYNECOLOGICAL Hx Genitourinary Disorders: No - PSYCHIATRIC Hx Substance Use: No - SURGICAL HISTORY Hx Surgeries: No - ANESTHESIA Hx Anesthesia: No Meds Allergies/Adverse Reactions: Allergies Allergy/AdvReac Type Severity Reaction Status Date / Time No Known Allergies Allergy Verified 04/27/18 23:18 - Medications Medications: Current Medications Amlodipine Besylate (Norvasc) 5 mg PO DAILY [facility] Last Admin: 04/29/18 10:31 Dose: 5 mg Aspirin (Ecotrin) 81 mg PO DAILY [facility] Last Admin: 04/29/18 10:31 Dose: 81 mg Cyanocobalamin (Vitamin B12 1000 Mcg/Ml Inj) 1,000 mcg IM DAILY [facility] Stop: 05/02/18 23:59 Last Admin: 04/29/18 10:43 Dose: 1,000 mcg Enalapril Maleate (Vasotec) 5 mg PO DAILY [facility] Last Admin: 04/29/18 10:31 Dose: 5 mg Enoxaparin Sodium (Lovenox) 40 mg SC DAILY [facility] Sodium Chloride (Sodium Chloride 0.9%) 1,000 mls @ 75 mls/hr IV .[id number] [facility] Last Admin: 04/28/18 15:45 Dose: 75 mls/hr Influenza Virus Vaccine (Flucelvax Quad 2888-5969 Syr) 60 mcg IM .ONCE ONE Stop: 04/30/18 10:01 Meclizine HCl (Antivert) 25 mg PO BID PRN PRN Reason: Dizziness Pantoprazole Sodium (Protonix Ec Tab) 40 mg PO DAILY [facility] Last Admin: 04/29/18 10:31 Dose: 40 mg Pneumococcal Polyvalent Vaccine (Pneumovax 23 Vaccine) 0.5 ml IM .ONCE ONE Stop: 04/30/18 10:01 Physical Exam - Constitutional Appears: Non-toxic - Head Exam Head Exam: NORMAL INSPECTION - Eye Exam Eye Exam: Normal appearance - ENT Exam ENT Exam: Mucous Membranes Moist - Neck Exam Neck exam: Positive for: Full Rom - Respiratory Exam Respiratory Exam: NORMAL BREATHING PATTERN - Cardiovascular Exam Cardiovascular Exam: REGULAR RHYTHM, Systolic Murmur - GI/Abdominal Exam GI & Abdominal Exam: Normal Bowel Sounds - Rectal Exam Rectal Exam: Deferred - Extremities Exam Extremities exam: Negative for: pedal edema - Back Exam Back exam: NORMAL INSPECTION - Neurological Exam Neurological exam: Alert, Oriented x3 - Psychiatric Exam Psychiatric exam: Normal Affect - Skin Skin Exam: Normal Color Results - Vital Signs Recent Vital Signs: Last Vital Signs Temp 97.7 F 04/29/18 08:00 Pulse 75 04/29/18 10:30 Resp 20 04/29/18 08:00 BP 125/61 04/29/18 10:31 Pulse Ox 98 04/29/18 15:10 - Labs Result Diagrams: 04/28/18 06:34 04/28/18 19:02 Labs: Laboratory Results - last 24 hr 04/28/18 19:02 Sodium 135 Potassium 4.1 Chloride 104 Carbon Dioxide 25 Anion Gap 10 BUN 10 Creatinine 0.8 Est GFR ( Amer) > 60 Est GFR (Non-Af Amer) > 60 Random Glucose 101 Calcium 9.1 Assessment & Plan (1) Aortic stenosis Assessment and Plan: patient has severe by echocardiogram. Ideally he will benefit from cardiac cath to evaluate for concomitant CAD and possible valve repalcement but will not perform at this time if there is acute CVA. will need further recs from neurology before proceeding. Status: Acute (2) Syncope Status: Acute
--- NOTE | 2018-04-29 18:16 | CARD ---
APPROVED REPORT Date of service: 04/29/2018 EXAM: Two-dimensional and M-mode echocardiogram with Doppler and color Doppler. Other Information Quality : GoodRhythm : INDICATION Dizziness and Vertigo Aortic Valve Disease RISK FACTORS Hypertension 2D DIMENSIONS IVSd1.1 (0.7-1.1cm)LVDd4.5 (3.9-5.9cm) LVOT Diameter2.3 (1.8-2.4cm)PWd1.0 (0.7-1.1cm) LA Pjwyay34 (18-58mL)LVDs2.8 (2.5-4.0cm) FS (%) 37.9 %LVEF (%)68.2 (>50%) LVEF (Damian's)63.94 % M-Mode DIMENSIONS Left Atrium (MM)2.74 (2.5-4.0cm)IVSd0.52 (0.7-1.1cm) Aortic Root3.58 (2.2-3.7cm)LVDd5.71 (4.0-5.6cm) Aortic Cusp Exc.1.67 (1.5-2.0cm)PWd0.61 (0.7-1.1cm) FS (%) 35 %LVDs3.71 (2.0-3.8cm) LVEF (%)64 (>50%) Aortic Valve AoV Peak Vjtzectk969.0cm/sAoV YEI739.0cmAO Peak GR.84mmHg LVOT Peak Gnkegftw92.7cm/sLVOT VTI25.90cmAO Mean GR.53mmHg ANTONIO (VMAX)0.26jr1MXH (VTI)0.83bm0EE P 1/2 [id number] Mitral Valve MV E Zvgbapyp697.4cm/sMV A Aezkhomr934.0cm/sE/A ratio0.9 TDI Lateral E' Peak V7.38cm/sMedial E' Peak V5.32cm/sE/Lateral E'15.6 E/Medial E'21.7 Tricuspid Valve TR Peak Djomqlco271rf/sTR Peak Gr.94nbUfLSLM09kyNh LEFT VENTRICLE The left ventricle is normal size. There is normal left ventricular wall thickness. The left ventricular function is normal. The left ventricular ejection fraction is within the normal range. There is normal LV segmental wall motion. Transmitral Doppler flow pattern is abnormal. RIGHT VENTRICLE The right ventricle is normal size. ATRIA The left atrium size is normal. The right atrium size is normal. AORTIC VALVE There is mild aortic regurgitation. There is moderate to severe supravalvular aortic stenosis. MITRAL VALVE Mitral regurgitation is mild. TRICUSPID VALVE There is mild tricuspid regurgitation. <Conclusion> Normal LV systolic function. Diastolic dysfunction. Normal chamber size. Moderate to severe Aortic stenosis. Mild AR. Mild MR. Mild TR.
--- NOTE | 2018-04-29 20:01 | CARD ---
APPROVED REPORT Date of service: 04/27/2018 EKG Measurement Heart [id number] <Conclusion> Normal sinus rhythm Normal ECG
--- NOTE | 2018-04-29 20:09 | CP.PCM.PN ---
Subjective - Date & Time of Evaluation Date of Evaluation: 04/29/18 Time of Evaluation: 20:06 - Subjective Subjective: Patient denies chest pain, dizziness or shortness of breath. Objective - Vital Signs/Intake and Output Vital Signs (last 24 hours): Temp Pulse Resp BP Pulse Ox 97.7 F 78 20 125/61 98 04/29/18 08:00 04/29/18 16:30 04/29/18 08:00 04/29/18 10:31 04/29/18 15:10 Intake and Output: 04/29/18 04/30/18 18:59 06:59 Intake Total 500 Balance 500 - Medications Medications: Current Medications Amlodipine Besylate (Norvasc) 5 mg PO DAILY [facility] Last Admin: 04/29/18 10:31 Dose: 5 mg Aspirin (Ecotrin) 81 mg PO DAILY [facility] Last Admin: 04/29/18 10:31 Dose: 81 mg Cyanocobalamin (Vitamin B12 1000 Mcg/Ml Inj) 1,000 mcg IM DAILY [facility] Stop: 05/02/18 23:59 Last Admin: 04/29/18 10:43 Dose: 1,000 mcg Enalapril Maleate (Vasotec) 5 mg PO DAILY [facility] Last Admin: 04/29/18 10:31 Dose: 5 mg Enoxaparin Sodium (Lovenox) 40 mg SC DAILY [facility] Sodium Chloride (Sodium Chloride 0.9%) 1,000 mls @ 75 mls/hr IV .[id number] [facility] Last Admin: 04/28/18 15:45 Dose: 75 mls/hr Influenza Virus Vaccine (Flucelvax Quad [id number] Syr) 60 mcg IM .ONCE ONE Stop: 04/30/18 10:01 Meclizine HCl (Antivert) 25 mg PO BID PRN PRN Reason: Dizziness Pantoprazole Sodium (Protonix Ec Tab) 40 mg PO DAILY [facility] Last Admin: 04/29/18 10:31 Dose: 40 mg Pneumococcal Polyvalent Vaccine (Pneumovax 23 Vaccine) 0.5 ml IM .ONCE ONE Stop: 04/30/18 10:01 - Labs Labs: 04/28/18 06:34 04/28/18 19:02 - Constitutional Appears: Well, Non-toxic, No Acute Distress - Head Exam Head Exam: ATRAUMATIC, NORMAL INSPECTION, NORMOCEPHALIC - Neck Exam Neck Exam: Full ROM, Normal Inspection - Respiratory Exam Respiratory Exam: Clear to Ausculation Bilateral, NORMAL BREATHING PATTERN - Cardiovascular Exam Cardiovascular Exam: REGULAR RHYTHM, +S1, +S2, Murmur - GI/Abdominal Exam GI & Abdominal Exam: Soft, Normal Bowel Sounds - Extremities Exam Extremities Exam: Full ROM, Normal Capillary Refill, Normal Inspection - Back Exam Back Exam: NORMAL INSPECTION - Neurological Exam Neurological Exam: Alert, Awake, Oriented x3 Assessment and Plan (1) Aortic stenosis Assessment & Plan: Cardiology on board. awaiting Cardiac Cath. Status: Acute (2) Hypertension Assessment & Plan: Continue same treatment. Status: Acute (3) Syncope Status: Acute (4) Hyperkalemia Assessment & Plan: BMP in AM Status: Acute
--- NOTE | 2018-04-30 08:11 | PN ---
DATE: 04/29/2018 TIME OF EVALUATION: 7:05. NEUROLOGICAL PROBLEM: Syncopal attack, left hemiparesis. PHYSICAL EXAMINATION: GENERAL: The patient is lying comfortably in the bed. He slept good. Communicable only in Urdu. VITAL SIGNS: Blood pressure 121/68, mean arterial pressure of 85, respiratory rate 18, pulse rate 72, regular; temperature 98.3 Fahrenheit. EXTREMITIES: He moves all four extremities against gravity. Mild left hemiparesis again noted. LABORATORY DATA: Recent blood workup; sodium 135, potassium 4.1, chloride 104, bicarbonate 25, BUN 10, creatinine 0.8, GFR more than 60. Vitamin B12 is 159, prolactin 7.3, TSH 1.08. RECOMMENDATIONS: Continue the recommended workup as earlier in my consultation. The patient's B12 should be supplemented by injection form. The patient will be followed closely with you. Uzair Anguiano MD
[2018-04-30 08:17] LABS: BLOOD UREA NITROGEN 15 mg/dL (9-20); CALCIUM 9.2 mg/dl (8.6-10.4); GFR NON-AFRICAN AMERICAN > 60
--- NOTE | 2018-04-30 08:57 | PN ---
DATE: 04/30/2018 TIME OF EVALUATION: 7:10 a.m. NEUROLOGICAL PROBLEM: Syncopal attack with raccoon eye on his left side. PHYSICAL EXAMINATION: GENERAL: The patient is more awake, alert, and oriented to person, place, and time. He slept good. He is moving all 4 extremities against gravity. Since his admission, no change in mental status as well as nor neuro status. VITAL SIGNS: Blood pressure 156/69, mean arterial pressure of 98, respiratory rate 18, temperature 98.6. DIAGNOSTIC DATA: His workup, MRI of the brain does not show any acute pathology except atrophy and periventricular ischemic changes. He is recommended ultrasonogram, it is still pending. His B12 is 159, which he was well supplemented with injection of vitamin B12. The patient will be followed closely with you. Uzair Anguiano MD
[2018-04-30] MEDS ORDERED: Pneumococcal 23-Valent Vaccine IM ONE (10:00)
[2018-04-30] MEDS ORDERED: Influenza Vaccine 60 mcg/0.5 mL SYR (4YR UP) IM ONE (10:00)
[2018-04-30] MEDS: Pantoprazole 40 mg EC Tab PO SCH (10:27)
[2018-04-30] MEDS: Enoxaparin 40 mg Syringe SC SCH (10:27)
--- NOTE | 2018-04-30 11:06 | VASCLAB ---
Date of service: 04/29/2018 PROCEDURE: Carotid Duplex Exam. HISTORY: Stenosis COMPARISON: None available. TECHNIQUE: Grayscale and duplex Doppler evaluation of the cervical carotid and vertebral arteries were performed. The common carotid, carotid bifurcations and cervical Internal Carotid Artery (ICA) and proximal External Carotid Artery (ECA) were evaluated. The vertebral arteries were evaluated for gross patency and flow direction. Report prepared by Abdon Hall, BS, RVT FINDINGS: RIGHT CAROTID ARTERIES: 1. Common Carotid Artery: No significant focal plaque formation of the right common carotid artery. Maximum Peak Systolic velocity: 91 cm/sec: End-diastolic velocity 9 cm/sec. 2. Carotid Bifurcation: Calcific plaque formation. Maximum Peak Systolic velocity: 144 cm/sec: End-diastolic velocity 12 cm/sec. 3. Internal Carotid Artery: Moderate plaque formation of the right proximal ICA which does not results in hemodynamically significant stenosis. Plaque description: 3.1. Proximal Segment: Peak systolic velocity 107 cm/sec: End-diastolic velocity 11 cm/sec - % stenosis 0-15% 3.2. Middle Segment: Peak systolic velocity 104 cm/sec: End-diastolic velocity 9 cm/sec - % stenosis 0-15% 3.3. Distal Segment: Peak systolic velocity 104 cm/sec: End-diastolic velocity 14 cm/sec - % stenosis 0-15% 4. External Carotid Artery: No significant focal plaque formation. Peak systolic velocity 111 cm/sec 5. ICA/CCA Ratio: 1.6 LEFT CAROTID ARTERIES: 1. Common Carotid Artery: No significant focal plaque formation of the left common carotid artery. Maximum Peak Systolic velocity: 111 cm/sec: End-diastolic velocity 16 cm/sec. 2. Carotid Bifurcation: Calcific plaque formation. Maximum Peak Systolic velocity: 86 cm/sec: End-diastolic velocity 0 cm/sec. 3. Internal Carotid Artery: Plaque description: 3.1. Proximal Segment: Peak systolic velocity 90 cm/sec: End-diastolic velocity 13 cm/sec - % stenosis 0-15% 3.2. Middle Segment: Peak systolic velocity 100 cm/sec: End-diastolic velocity 16 cm/sec - % stenosis 0-15% 3.3. Distal Segment: Peak systolic velocity 61 cm/sec: End-diastolic velocity 13 cm/sec - % stenosis 0-15% 4. External Carotid Artery: No significant focal plaque formation. Peak systolic velocity 102 cm/sec 5. ICA/CCA Ratio: 0.9 VERTEBRAL ARTERIES: 1. Right Vertebral Artery: The right vertebral artery flow direction is antegrade. 2. Left Vertebral Artery: The left vertebral artery flow direction is antegrade. OTHER FINDINGS: 1. Right Brachial Blood pressure: 126 mmHg. 2. Left Brachial Blood pressure: 122 mmHg. 3. No atherosclerotic calcification present IMPRESSION: RIGHT: Duplex scan does not suggest hemodynamically significant stenosis of the right extracranial carotid arteries. LEFT: Duplex scan does not suggest hemodynamically significant stenosis of the left extracranial carotid arteries.
--- NOTE | 2018-04-30 14:39 | CP.PCM.PN ---
Subjective - Date & Time of Evaluation Date of Evaluation: 04/30/18 Time of Evaluation: 14:30 - Subjective Subjective: patient has no new chest pain. Objective - Vital Signs/Intake and Output Vital Signs (last 24 hours): Temp Pulse Resp BP Pulse Ox 97.2 F L 73 20 141/52 L 100 04/30/18 08:00 04/30/18 12:00 04/30/18 08:00 04/30/18 10:26 04/30/18 08:00 Intake and Output: 04/30/18 04/30/18 06:59 18:59 Intake Total 720 Output Total 600 Balance 120 - Medications Medications: Current Medications Amlodipine Besylate (Norvasc) 5 mg PO DAILY [facility] Last Admin: 04/30/18 10:27 Dose: 5 mg Aspirin (Ecotrin) 81 mg PO DAILY [facility] Last Admin: 04/30/18 10:30 Dose: 81 mg Cyanocobalamin (Vitamin B12 1000 Mcg/Ml Inj) 1,000 mcg IM DAILY [facility] Stop: 05/02/18 23:59 Last Admin: 04/30/18 10:33 Dose: 1,000 mcg Enalapril Maleate (Vasotec) 5 mg PO DAILY [facility] Last Admin: 04/30/18 10:26 Dose: 5 mg Enoxaparin Sodium (Lovenox) 40 mg SC DAILY [facility] Last Admin: 04/30/18 10:27 Dose: 40 mg Sodium Chloride (Sodium Chloride 0.9%) 1,000 mls @ 75 mls/hr IV .[id number] [facility] Last Admin: 04/29/18 15:45 Dose: 75 mls/hr Meclizine HCl (Antivert) 25 mg PO BID PRN PRN Reason: Dizziness Pantoprazole Sodium (Protonix Ec Tab) 40 mg PO DAILY [facility] Last Admin: 04/30/18 10:27 Dose: 40 mg - Labs Labs: 04/28/18 06:34 04/30/18 07:14 - Constitutional Appears: Non-toxic - Head Exam Head Exam: NORMAL INSPECTION - Eye Exam Eye Exam: Normal appearance - ENT Exam ENT Exam: Mucous Membranes Moist - Neck Exam Neck Exam: Full ROM - Respiratory Exam Respiratory Exam: Decreased Breath Sounds - Cardiovascular Exam Cardiovascular Exam: REGULAR RHYTHM, Murmur - GI/Abdominal Exam GI & Abdominal Exam: Normal Bowel Sounds - Rectal Exam Rectal Exam: Deferred - Extremities Exam Extremities Exam: absent: Pedal Edema - Back Exam Back Exam: NORMAL INSPECTION - Neurological Exam Neurological Exam: Alert - Psychiatric Exam Psychiatric exam: Normal Affect - Skin Skin Exam: Normal Color Assessment and Plan (1) Aortic stenosis Assessment & Plan: severe by echo. would recommend cardiac cath if cleared by neuro. Status: Acute (2) Syncope Status: Acute
--- NOTE | 2018-04-30 18:10 | CP.PCM.PN ---
Subjective - Date & Time of Evaluation Date of Evaluation: 04/30/18 Time of Evaluation: 18:08 - Subjective Subjective: Patient denies chest pain or dizziness. Objective - Vital Signs/Intake and Output Vital Signs (last 24 hours): Temp Pulse Resp BP Pulse Ox 98.2 F 78 20 90/50 L 97 04/30/18 16:00 04/30/18 16:00 04/30/18 16:00 04/30/18 16:00 04/30/18 16:00 Intake and Output: 04/30/18 04/30/18 06:59 18:59 Intake Total 720 Output Total 600 Balance 120 - Medications Medications: Current Medications Amlodipine Besylate (Norvasc) 5 mg PO DAILY [facility] Last Admin: 04/30/18 10:27 Dose: 5 mg Aspirin (Ecotrin) 81 mg PO DAILY [facility] Last Admin: 04/30/18 10:30 Dose: 81 mg Cyanocobalamin (Vitamin B12 1000 Mcg/Ml Inj) 1,000 mcg IM DAILY [facility] Stop: 05/02/18 23:59 Last Admin: 04/30/18 10:33 Dose: 1,000 mcg Enalapril Maleate (Vasotec) 5 mg PO DAILY [facility] Last Admin: 04/30/18 10:26 Dose: 5 mg Enoxaparin Sodium (Lovenox) 40 mg SC DAILY [facility] Last Admin: 04/30/18 10:27 Dose: 40 mg Sodium Chloride (Sodium Chloride 0.9%) 1,000 mls @ 75 mls/hr IV .[id number] [facility] Last Admin: 04/29/18 15:45 Dose: 75 mls/hr Meclizine HCl (Antivert) 25 mg PO BID PRN PRN Reason: Dizziness Pantoprazole Sodium (Protonix Ec Tab) 40 mg PO DAILY [facility] Last Admin: 04/30/18 10:27 Dose: 40 mg - Labs Labs: 04/28/18 06:34 04/30/18 07:14 - Constitutional Appears: Well, Non-toxic, No Acute Distress - Head Exam Head Exam: ATRAUMATIC, NORMAL INSPECTION, NORMOCEPHALIC - Eye Exam Eye Exam: EOMI, Normal appearance, PERRL - Neck Exam Neck Exam: Full ROM, Normal Inspection - Respiratory Exam Respiratory Exam: Clear to Ausculation Bilateral, NORMAL BREATHING PATTERN - Cardiovascular Exam Cardiovascular Exam: REGULAR RHYTHM, +S1, +S2 - GI/Abdominal Exam GI & Abdominal Exam: Soft, Normal Bowel Sounds - Extremities Exam Extremities Exam: Full ROM, Normal Capillary Refill, Normal Inspection Assessment and Plan (1) Aortic stenosis Assessment & Plan: Awaiting Cardiac Cath. Continue same treatment. Status: Acute (2) Hypertension Assessment & Plan: Continue same treatment. Status: Acute (3) Syncope Status: Resolved (4) Hyperkalemia Status: Resolved
[2018-05-01] MEDS: Pantoprazole 40 mg EC Tab PO SCH (10:01)
[2018-05-01] MEDS: Enoxaparin 40 mg Syringe SC SCH (10:01)
--- NOTE | 2018-05-01 10:08 | PN ---
DATE: 05/01/2018 TIME OF EVALUATION: 06:45 a.m. NEUROLOGICAL PROBLEM: Syncope attack with postconcussion syndrome. PHYSICAL EXAMINATION: GENERAL: The patient is more awake, alert, oriented to person, place, and time. Speech is clear. Moving all four extremities against the gravity. Transient left hemiparesis, which is resolved at present. VITAL SIGNS: Blood pressure 104/56, mean arterial pressure of 72, respiratory rate 18, pulse rate 70 and regular, and temperature 97.7. LABORATORY DATA: His recommended MRI of the brain being reviewed. No acute pathology is noted. The carotid Doppler does not show any hemodynamic stenosis. RECOMMENDATION: His recommended EEG is still pending. The patient, if EEG is done, will be followed, otherwise EEG can be done as an outpatient if medically stable. The patient can be discharged and should have followup visit with me as an outpatient. Uzair Anguiano MD
--- NOTE | 2018-05-01 19:23 | CP.PCM.DIS ---
Provider - Provider Date of Admission: 04/30/18 16:25 Attending physician: Judah Smallwood MD Consults: 04/28/18 08:00 Cardiology Consult Routine Comment: Consulting Provider: Glenroy Reynolds Consulting Physician: Glenroy Reynolds Reason for Consult: syncopal episode Physician Consult Routine Comment: Consulting Provider: Uzair Anguiano Consulting Physician: Uzair Anguiano Reason for Consult: syncopal episode Time Spent in preparation of Discharge (in minutes): 30 Diagnosis - Discharge Diagnosis (1) Aortic stenosis Status: Acute (2) Hypertension Status: Acute (3) Syncope Status: Resolved (4) Hyperkalemia Status: Resolved Hospital Course - Lab Results Lab Results: Most Recent Lab Values WBC 9.6 K/uL (4.8-10.8) 04/28/18 06:34 RBC 3.72 Mil/uL (4.40-5.90) L 04/28/18 06:34 Hgb 11.6 g/dL (12.0-18.0) L 04/28/18 06:34 Hct 35.1 % (35.0-51.0) 04/28/18 06:34 MCV 94.5 fL (80.0-94.0) H 04/28/18 06:34 MCH 31.3 pg (27.0-31.0) H 04/28/18 06:34 MCHC 33.2 g/dL (33.0-37.0) 04/28/18 06:34 RDW 14.2 % (11.5-14.5) 04/28/18 06:34 Plt Count 257 K/uL (130-400) 04/28/18 06:34 MPV 7.7 fL (7.2-11.7) 04/28/18 06:34 Neut % (Auto) 52.9 % (50.0-75.0) 04/28/18 06:34 Lymph % (Auto) 35.0 % (20.0-40.0) 04/28/18 06:34 [place] % (Auto) 8.8 % (0.0-10.0) 04/28/18 06:34 Eos % (Auto) 2.4 % (0.0-4.0) 04/28/18 06:34 Baso % (Auto) 0.9 % (0.0-2.0) 04/28/18 06:34 Neut # (Auto) 5.1 K/uL (1.8-7.0) 04/28/18 06:34 Lymph # (Auto) 3.4 K/uL (1.0-4.3) 04/28/18 06:34 [place] # (Auto) 0.8 K/uL (0.0-0.8) 04/28/18 06:34 Eos # (Auto) 0.2 K/uL (0.0-0.7) 04/28/18 06:34 Baso # (Auto) 0.1 K/uL (0.0-0.2) 04/28/18 06:34 Sodium 134 mmol/L (132-148) 04/30/18 07:14 Potassium 4.0 mmol/L (3.6-5.2) 04/30/18 07:14 Chloride 105 mmol/L (98-107) 04/30/18 07:14 Carbon Dioxide 23 mmol/L (22-30) 04/30/18 07:14 Anion Gap 11 (10-20) 04/30/18 07:14 BUN 15 mg/dL (9-20) 04/30/18 07:14 Creatinine 0.8 mg/dL (0.8-1.5) 04/30/18 07:14 Est GFR ( Amer) > 60 04/30/18 07:14 Est GFR (Non-Af Amer) > 60 04/30/18 07:14 POC Glucose (mg/dL) 115 mg/dL (65-110) H 04/27/18 23:29 Random Glucose 99 mg/dL (75-110) 04/30/18 07:14 Hemoglobin A1c 5.8 % (4.2-6.5) 04/28/18 14:21 Calcium 9.2 mg/dl (8.6-10.4) 04/30/18 07:14 Total Bilirubin 0.4 mg/dL (0.2-1.3) 04/28/18 06:34 AST 19 U/L (17-59) 04/28/18 06:34 ALT 20 U/L (21-72) L D 04/28/18 06:34 Alkaline Phosphatase 62 U/L (38-126) 04/28/18 06:34 Troponin I < 0.0120 ng/mL (0.00-0.120) 04/28/18 00:16 Total Protein 6.1 g/dL (6.3-8.3) L 04/28/18 06:34 Albumin 3.7 g/dL (3.5-5.0) 04/28/18 06:34 Globulin 2.4 gm/dL (2.2-3.9) 04/28/18 06:34 Albumin/Globulin Ratio 1.6 (1.0-2.1) 04/28/18 06:34 Vitamin B12 < 159 pg/mL (239-931) L 04/28/18 14:21 Free T4 0.95 ng/dL (0.78-2.19) 04/28/18 14:21 TSH 3rd Generation 1.08 mIU/L (0.46-4.68) 04/28/18 14:21 Prolactin 7.3 ng/mL (3.7-17.9) 04/28/18 14:21 - Hospital Course Hospital Course: 82 years old male with PMH significant for HTN and Aortic Stenosis admitted for Syncope. Neurology and Cardiology consulted ordered. CT scan and MRI of the Brain with no acute infarct or hemorrhage. 2D Echo showed severe Aort ic Stenosis. Cardiology and Neurology cleared patient for discharge home. Patient will have Cardiac Cath as outpatient at [facility]. Patient's case discussed with Front Desk Officer Dr Reynolds. Patient's instructed to call Dr Reynolds tomorrow for follow up appointment. Discharge Exam - Head Exam Head Exam: ATRAUMATIC, NORMAL INSPECTION, NORMOCEPHALIC - Eye Exam Eye Exam: EOMI, Normal appearance, PERRL - Neck Exam Neck exam: Full Rom, Normal Inspection - Respiratory Exam Respiratory Exam: Clear to PA & Lateral, NORMAL BREATHING PATTERN - Cardiovascular Exam Cardiovascular Exam: REGULAR RHYTHM, +S1, +S2, Systolic Murmur - GI/Abdominal Exam GI & Abdominal Exam: Normal Bowel Sounds, Soft, Unremarkable - Neurological Exam Neurological exam: Alert, CN II-XII Intact, Normal Gait, Oriented x3, Reflexes Normal - Psychiatric Exam Psychiatric exam: Normal Affect, Normal Mood - Skin Skin Exam: Dry, Intact, Normal Color Discharge Plan - Follow Up Plan Instructions: Hypertension (DC), Hypertension (GEN), Hyperkalemia (DC), Hyperkalemia (GEN), Syncope (DC), Syncope (GEN)
[2018-05-02 08:35] VITALS: TEMP 98.1; O2SAT 98
[2018-05-02 10:02] VITALS: BP 102/56
[2018-05-02] MEDS: Pantoprazole 40 mg EC Tab PO SCH (10:02)
[2018-05-02] MEDS: Enoxaparin 40 mg Syringe SC SCH (10:02)
[2018-05-02 10:06] VITALS: PULSE 80
--- NOTE | 2018-05-02 11:21 | PN ---
DATE: 05/02/2018 TIME OF EVALUATION: 06:55 a.m. NEUROLOGICAL CONSULTATION: Syncopal attack, postconcussion syndrome. PHYSICAL EXAMINATION: GENERAL: The patient reciprocal on calling his name, but communicable only in Upper Sorbian. Moves all four extremities against the gravity. Follows commands. VITAL SIGNS: Blood pressure 96/50, mean arterial pressure of 65, respiratory rate 18, temperature 97.7 with a pulse rate 73. Examination, which is unchanged compared with my previous examination. The patient's electroencephalogram been reviewed; slow activities without any paroxysmal activities. From the neurological point of view, all workup is completed. The patient is stable. The patient will be followed by me as an outpatient. At this time, I would like to sign him off from neurological followup. If any changes, please consider to call me back for further evaluation. Uzair Anguiano MD
--- NOTE | 2018-05-02 15:57 | EEG ---
DATE: 04/30/2018 This is a 16-channel electroencephalogram of awake and drowsy adult. During the study, photic stimulation was performed. Hyperventilation was not performed. The resting electroencephalogram consists of high amplitude 5 to 7 Hz theta activities noted at parietal and occipital leads. fast activity superimposed with 2 to 3 Hz of delta activity seen. Intermittent movement artifact and blinking artifact contaminated the background rhythm. IMPRESSION: This is an abnormal electroencephalogram because of the persistent slowing throughout the record suggestive of bilateral cerebral dysfunction. This is probably secondary to metabolic, vascular, or degenerative process. Please correlate the findings with the neurological and radiological studies. Uzair Anguiano MD
== END 2018-05-02 13:20 | disposition home or self-care (01) | DRG 307 ==
LOC: C.ER 23:05 → C.9E 04-28 01:02 → C.5S 04-28 23:12 → OBSVTOIN 04-30 16:25
PROVIDERS: ADMIT Internal Medicine; ATTEND Internal Medicine
DX: I35.0 Nonrheumatic aortic (valve) stenosis (principal); F07.81 Postconcussional syndrome; G62.1 Alcoholic polyneuropathy; I10 Essential (primary) hypertension; E87.5 Hyperkalemia; G81.94 Hemiplegia, unspecified affecting left nondominant side; F03.90 Unspecified dementia, unspecified severity, without behavioral disturbance, psychotic disturbance, mood disturbance, and anxiety; K21.9 Gastro-esophageal reflux disease without esophagitis; W19.XXXA Unspecified fall, initial encounter; Y92.009 Unspecified place in unspecified non-institutional (private) residence as the place of occurrence of the external cause